=== PATIENT | female | born 1985 | race Caucasian/White ===

== ENCOUNTER 2022-10-12 20:35 | Emergency (ER) | payer OTHER ==
[2022-10-12] MEDS ORDERED: TYLENOL 325 MG PO ONE (21:35)
[2022-10-12] MEDS ORDERED: TYLENOL 325 MG ONE (21:38)
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
[2022-10-12] MEDS ORDERED: ZOFRAN ODT 4 MG PO ONE (21:44)
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
[2022-10-12] MEDS ORDERED: ZOFRAN ODT 4 MG ONE (21:49)
[2022-10-12 22:06] VITALS: BP 149/92
[2022-10-12 22:13] VITALS: PULSE 64
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
[2022-10-12 22:40] VITALS: O2SAT 97
== END 2022-10-12 22:51 | disposition home or self-care (01) ==
LOC: ED 20:35
DX: S06.0X0A Concussion without loss of consciousness, initial encounter (principal); S16.1XXA Strain of muscle, fascia and tendon at neck level, initial encounter; V87.7XXA Person injured in collision between other specified motor vehicles (traffic), initial encounter; Y92.411 Interstate highway as the place of occurrence of the external cause; R51.9 Headache, unspecified; M25.511 Pain in right shoulder; M25.512 Pain in left shoulder; R11.0 Nausea; Z79.85 Long-term (current) use of injectable non-insulin antidiabetic drugs; Z79.899 Other long term (current) drug therapy; Z28.310 Unvaccinated for COVID-19
CPT/HCPCS: 70450; 99285; Q0162; A9270-GY